=== PATIENT | female | born 1990 | race Caucasian/White ===

== ENCOUNTER 2016-12-19 12:32 | Emergency (ER) | payer OTHER ==
[~2016-12-19] VITALS: Ht 165.1 cm; Wt 74.3 kg
[2016-12-19] MEDS ORDERED: NUVARING VAGIN1 EACH VG (12:41)
[2016-12-19] MEDS ORDERED: NORCO 5/3251 TABLET PO (14:05)
[2016-12-19] MEDS ORDERED: TESSALON PERLE100 MG PO (14:05)
[2016-12-19] MEDS ORDERED: MOTRIN600 MG PO (14:05)
[2016-12-19] MEDS ORDERED: ZITHROMAX Z-PA250 MG PO (14:07)
[2016-12-19 14:20] VITALS: BP 102/70
== END 2016-12-19 14:22 | disposition home or self-care (01) ==
LOC: EME 12:32
DX: R07.89 Other chest pain (principal); J40 Bronchitis, not specified as acute or chronic
CPT/HCPCS: 93005; 99281; 99284; J1885